=== PATIENT | female | born 1955 | race Caucasian/White ===

== ENCOUNTER 2019-10-24 14:47 | Emergency (ER) | payer OTHER ==
[2019-10-24 16:10] VITALS: BP 149/83
--- NOTE | 2019-10-24 16:22 | UC ---
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 Thinks that the pot of water weighted at least 25 pounds, and she hoisted it to the edge of the sink to drain pasta, which is the movement that caused the acute pain. Over the course of the day, particularly this morning, she has a full sensation in the perineum, without associated urine leakage or incontinence. She has a past history of vaginal hysterectomy and vaginal repair, done some years ago, without symptoms of pressure since that time. She has not used pain medications, and did work today. 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 - History of Current Complaint Chief Complaint: UCGeneralIllness Stated Complaint: WC-POSS PROLAPSED BLADDER Time Seen by Provider: 10/24/19 16:11 Hx Obtained From: Patient Onset/Duration: Sudden Onset, Lasting Days - 1 Timing: Constant Severity Initially: Mild Severity Currently: Mild Pain Intensity: 2 Location: Discrete At: RLQ, Other - perineum Radiates: Yes Radiates to: Other - right side pain radiates to buttock Character: Aching, Dull Aggravating Factor(s): Movement Alleviating Factor(s): Position Associated Signs and Symptoms: Positive: Back Pain - has chronic low back pain but not worse with this injury.. Negative: Cough, Urinary Symptoms, Vaginal Discharge Allergies/Adverse Reactions: Allergies Allergy/AdvReac Type Severity Reaction Status Date / Time codeine Allergy Severe throat Verified 10/24/19 15:55 swelling, itching and vomiting Sulfa (Sulfonamide Allergy Severe throat Verified 10/24/19 15:55 Antibiotics) swelling , vomiting Home Medications: Home Medications Gabapentin CAP(*) [Neurontin 100 mg CAP(*)] 100 mg PO TID 10/24/19 [History Confirmed 10/24/19] Glimepiride 1 mg PO DAILY 10/24/19 [History Confirmed 10/24/19] Levothyroxine TAB* [Synthroid TAB*] 137 mcg PO DAILY 10/24/19 [History Confirmed 10/24/19] Losartan TAB* [Cozaar TAB*] 100 mg PO DAILY 10/24/19 [History Confirmed 10/24/19 ] PMH/Surg Hx/FS Hx/Imm Hx Endocrine History: Diabetes, Hypothyroidism Cardiovascular History: Hypertension Neurological History: Other - neuropathy, uses gabapentin - Surgical History Surgical History: Yes Surgery Procedure, Year, and Place: tubal. complete hysterectomy - Family History Known Family History: Positive: Non-Contributory - Social History Occupation: Employed Full-time Alcohol Use: None Substance Use Type: None Smoking Status (MU): Former Smoker When Did the Patient Quit Smoking/Using Tobacco: 14 years Household Exposure Type: Cigarettes - Immunization History Most Recent Influenza Vaccination: none Review of Systems All Other Systems Reviewed And Are Negative: Yes Constitutional: Positive: Fatigue Skin: Positive: Negative Eyes: Positive: Negative ENT: Positive: Negative Respiratory: Positive: Negative Cardiovascular: Positive: Other - treated hypertension, avoids nsaid's due to this. Gastrointestinal: Positive: Negative Genitourinary: Positive: Negative. Negative: Urgency Musculoskeletal: Positive: Arthralgia, Myalgia Neurological: Positive: Negative Psychological: Positive: Negative Is Patient Immunocompromised?: No Physical Exam Triage Information Reviewed: Yes Appearance: Pain Distress - mild to moderate, Obese - looks older than stated age. Vital Signs: Initial Vital Signs Temp 97.4 F 10/24/19 15:59 Pulse 87 10/24/19 15:59 Resp 16 10/24/19 15:59 BP 149/83 10/24/19 15:59 Pulse Ox 98 10/24/19 15:59 ENT: Positive: Pharynx normal Respiratory: Positive: Lungs clear, Normal breath sounds Cardiovascular: Positive: RRR, No Murmur Abdomen Description: Positive: Other: - tenderness lower outer border of RIGHT rectus sheath. Negative: Distended, Guarding Pelvic Exam: Positive: Other - Exam chaperoned by AVERY Tyler. Inner labia with erythema and moderate atrophy grade 2 anterior vaginal wall prolapse evident on exam, with descent of the vaginal wall with valsalva maneuver. Musculoskeletal Exam: Other - normal SLR Neurological: Positive: Alert, Muscle Tone Normal Psychological Exam: Normal Skin Exam: Normal Abd Pain Female Course/Dx - Course Course Of Treatment: discussed lifting restriction, and anticipation that low abdominal strain will heal. Will need county adviser assessment to ascertain if recurrence of prolapse is new and secondary to yesterday's injury. Advised follow up with main entree cook and cashier as well as with Dr. Ortiz for advice about how to proceed. - Differential Dx/Diagnosis Differential Diagnosis: Other - abdominal wall strain Provider Diagnosis: Strain of abdominal wall, Vaginal wall prolapse Discharge ED - Sign-Out/Discharge Documenting (check all that apply): Patient Departure All imaging exams completed and their final reports reviewed: No Studies - Discharge Plan Condition: Stable Disposition: HOME Patient Education Materials: Muscle Strain (ED), Cystocele (ED) Forms: *Work Release Referrals: BURKE FrederickSyed [Primary Care Provider] - Jonathan Ortiz MD [Medical Doctor] - Abi Lutz MD [Medical Doctor] - Additional Instructions: You can use acetaminophen as needed for pain. Apply warm compresses to the buttock and low right abdomen. Follow up within [address] Ortiz, and with Dr. Lutz (main entree cook and cashier) if you wish. Limit lifting to 10 pounds. - Billing Disposition and Condition Condition: STABLE Disposition: Home
== END 2019-10-24 17:09 | disposition home or self-care (01) ==
LOC: UCCORT 14:47
DX: S39.011A Strain of muscle, fascia and tendon of abdomen, initial encounter (principal); N81.10 Cystocele, unspecified; E11.9 Type 2 diabetes mellitus without complications; I10 Essential (primary) hypertension; E03.9 Hypothyroidism, unspecified; G62.9 Polyneuropathy, unspecified; R53.83 Other fatigue; Y92.9 Unspecified place or not applicable; X50.0XXA Overexertion from strenuous movement or load, initial encounter; Z87.891 Personal history of nicotine dependence; Z79.899 Other long term (current) drug therapy; Z79.84 Long term (current) use of oral hypoglycemic drugs; Z88.5 Allergy status to narcotic agent; Z88.2 Allergy status to sulfonamides; Z79.890 Hormone replacement therapy
CPT/HCPCS: 99201; G0463